=== PATIENT | male | born 1970 | race Hispanic/Latino ===

== ENCOUNTER 2017-11-30 14:18 | Emergency (ER) | payer OTHER ==
--- NOTE | 2017-11-30 14:59 | RAD ---
HISTORY: cough COMPARISON: No prior. TECHNIQUE: Chest PA and lateral FINDINGS: LUNGS: No active pulmonary disease. PLEURA: No significant pleural effusion identified. No pneumothorax apparent. CARDIOVASCULAR: Normal. Bronchovascular markings top-normal OSSEOUS STRUCTURES: No significant abnormalities. VISUALIZED UPPER ABDOMEN: Normal. OTHER FINDINGS: None. IMPRESSION: No infiltrate appreciated
[2017-11-30] MEDS ORDERED: Sodium Chloride 0.9% 1,000 ML IV SCH (15:15)
[2017-11-30 15:20] LABS: BASO % 0.4 % (0.0-2.0); EOS # 0.2 K/uL (0.0-0.7); EOS % 3.9 % (0.0-4.0); HEMOGLOBIN 14.6 g/dL (12.0-18.0); LYMPH # 0.4 K/uL (1.0-4.3); MEAN CELL VOLUME 95.1 fl (80.0-94.0); MEAN CORPUSCULAR HGB CONC 33.6 g/dL (33.0-37.0); MEAN PLATELET VOLUME 7.2 fl (7.2-11.7); MONO # 0.8 K/uL (0.0-0.8); MONO % 13.2 % (0.0-10.0); NEUT # 4.9 K/uL (1.8-7.0); NEUT % 76.5 % (50.0-75.0); NRBC % 0.1 % (0.0-0.0); PLATELET COUNT 158 K/uL (130-400); RBC 4.57 Mil/uL (4.40-5.90); RED CELL DISTRIBUTION WIDTH 13.7 % (11.5-14.5); WHITE BLOOD COUNT 6.4 K/uL (4.8-10.8)
[2017-11-30 15:27] LABS: ALB/GLOB RATIO 1.5 (1.0-2.1); ALBUMIN 4.5 g/dL (3.5-5.0); ALT/SGPT 75 U/L (21-72); AST/SGOT 75 U/L (17-59); BLOOD UREA NITROGEN 10 mg/dl (9-20); CALCIUM 9.2 mg/dL (8.4-10.2); GFR AFRICAN-AMERICAN > 60; GFR NON-AFRICAN AMERICAN > 60
--- NOTE | 2017-11-30 15:46 | ED PDOC ---
HPI: General Adult Chief Complaint (Nursing): Flu-like Symptoms History Per: Patient History/Exam Limitations: no limitations Onset/Duration Of Symptoms: Days (1) Have you had recent travel within the past 21 days to any of the following countries: [place], [place], [place] or [place]?: No Additional Complaint(s): 47 yo M w/ PMH of HTN and gout, reports 1 day of fever with malaise, chills, cough. Otherwise: (-) rash, (-) sore throat, (-) URI symptoms, (-) SOB, (-) chest pain, (-) N/V/D, (-) abdominal pain, (-) flank pain, (-) urinary symptoms , (-) recent travel, (-) sick contacts. Reports receiving the flu shot this season. Past Medical History Vital Signs: Last Vital Signs Temp 100.1 F H 11/30/17 14:56 Pulse 114 H 11/30/17 14:23 Resp 18 11/30/17 14:23 BP 135/88 11/30/17 14:23 Pulse Ox 94 L 11/30/17 15:51 - Medical History PMH: GERD, HTN (not on meds) - Family History Family History: States: Unknown Family Hx - Home Medications Home Medications: Ambulatory Orders Medication Instructions Recorded Naproxen 500 mg PO Q12 #20 tab 12/06/14 Meclizine HCl [Antivert/25] 1 tab PO TID PRN #25 tab 12/20/15 Acetaminophen/Oxycodone Hydr 1 tab PO Q6H PRN #10 tab 01/30/17 [Percocet 10/325 mg Tab] predniSONE [Prednisone] 20 mg PO BID #10 tab 01/30/17 Guaifenesin 400 mg PO QID PRN #20 tablet 11/30/17 Ibuprofen [Motrin Tab] 800 mg PO Q6H PRN #20 tab 11/30/17 - Allergies Allergies/Adverse Reactions: Allergies Allergy/AdvReac Type Severity Reaction Status Date / Time No Known Allergies Allergy Verified 11/30/17 14:28 Review of Systems Constitutional: Positive for: Fever, Chills, Malaise ENT: Negative for: Nose Discharge, Nose Congestion, Throat Pain Cardiovascular: Negative for: Chest Pain, Palpitations, Edema Respiratory: Positive for: Cough. Negative for: Shortness of Breath, Wheezing Gastrointestinal: Negative for: Nausea, Vomiting, Abdominal Pain Genitourinary Male: Negative for: Dysuria, Frequency, Hematuria Musculoskeletal: Negative for: Neck Pain, Back Pain Skin: Negative for: Rash, Lesions, Jaundice Neurological: Negative for: Weakness, Numbness, Incoordination Physical Exam - Physical Exam Comments: GENERAL APPEARANCE: Patient is awake, alert, oriented x 3, in no acute distress. SKIN: Warm, dry; (-) cyanosis, (-) rash. (-) Decubitus Ulcer EYES: (-) conjunctival pallor, (-) scleral icterus, (-) conjunctival hemorrhage. ENMT: Mucous membranes dry. TMs: (-) erythema. Airway patent: (-) stridor. Pharynx: (-) erythema, (-) exudate. NECK: (-) tenderness, (-) stiffness, (-) meningismus, (+) non-tender anterior cervical lymphadenopathy. CHEST AND RESPIRATORY: (-) accessory muscle use. Lungs: (-) rales, (-) rhonchi, (-) wheezes, (-) rub; breath sounds equal bilaterally. HEART AND CARDIOVASCULAR: (-) irregularity; (-) murmur, (-) gallop, (-) rub. ABDOMEN AND GI: Soft; (-) tenderness, (-) guarding; (-) organomegaly; (-) mass ; (-) CVA tenderness. EXTREMITIES: (-) deformity; (-) cellulitis, (-) lymphangitis; (-) subungual hemorrhage; (-) edema. NEURO AND PSYCH: Mental status as above; (-) focal findings. - Laboratory Results Result Diagrams: 11/30/17 15:10 11/30/17 15:10 - ECG O2 Sat by Pulse Oximetry: 94 Medical Decision Making Medical Decision Makin yo M c/o 1 day h/o fever, bodyaches, generalized weakness, productive cough x 1 day. Plan : - Labs - CXR - Rapid flu - IVF bolus - Motrin PO CXR : NAD, as read by GONZALO Rapid flu : (-) Labs reviewed and are wnl. On re-evaluation, patient reports feeling much improved. On exam, patient remains AAOx3 in no acute distress. Neck is supple with no signs of meningismus. Patient tolerating po fluids. Dx of viral illness d/w the patient. Based on history, exam and diagnostic results plan will be for outpatient follow up. Patient feels comfortable going home. Instructed to follow up with primary care physician in 1-2 days without fail. Advised to take medication as prescribed. Return to the emergency room at any time for any new or worsening symptoms. Patient states he fully agrees with and understands discharge instructions. States that he agrees with the plan and disposition. Verbalized and repeated discharge instructions and plan. I have given the patient opportunity to ask any additional questions. Disposition - Clinical Impression Clinical Impression: Influenza-like symptoms - Patient ED Disposition Is Patient to be Admitted: No Counseled Patient/Family Regarding: Studies Performed, Diagnosis, Need For Followup, Rx Given, Smoking Cessation - Disposition Disposition: Routine/Home Disposition Time: 15:44 Condition: STABLE Additional Instructions: Thank you for letting us take care of you today. You were treated for viral illness. The emergency medical care you received today was directed at your acute symptoms. If you were prescribed any medication, please fill it and take as directed. It may take several days for your symptoms to resolve. Return to the Emergency Department if your symptoms worsen, do not improve, or if you have any other problems. Please contact your doctor in 2 days for re-evaluation and follow up. Bring any paperwork you were given at discharge with you along with any medications you are taking to your follow up visit. Our treatment cannot replace ongoing medical care by a primary care provider (PCP) outside of the emergency department. Thank you for allowing the [facility] team to be part of your care today. Prescriptions: Guaifenesin 400 mg PO QID PRN #20 tablet PRN Reason: Cough Ibuprofen [Motrin Tab] 800 mg PO Q6H PRN #20 tab PRN Reason: Fever >100.4 F Instructions: Viral Syndrome (ED) Forms: [employer] (Macanese), [facility] ED School/Work Excuse Print Language: ECUADOREAN - PA / ONLINE MARKETING SPECIALIST / Resident Statement MD/DO has reviewed & agrees with the documentation as recorded.
[2017-11-30 16:32] VITALS: TEMP 100.9
[2017-11-30 16:33] VITALS: BP 122/74; PULSE 94; RESP 16; O2SAT 97
[2017-11-30 16:50] LABS: BANDS 3 % (0-2); EOSINOPHIL 4 % (0-7); LYMPHOCYTE 8 % (20-50); MONOCYTE 10 % (0-10); NEUTROPHIL 75 % (42-75); PLATELET ESTIMATE NORMAL (NORMAL); TOTAL CELLS COUNTED 100
== END 2017-11-30 16:51 | disposition home or self-care (01) ==
LOC: H.ER 14:18
DX: B34.9 Viral infection, unspecified (principal); I10 Essential (primary) hypertension; M10.9 Gout, unspecified
CPT/HCPCS: 71046; 80053; 85025; 87804; 96360; 99283; J7040

== ENCOUNTER 2019-02-22 23:19 | Emergency (ER) | payer OTHER ==
[2019-02-22 23:28] VITALS: RESP 18; TEMP 97.5; O2SAT 99
--- NOTE | 2019-02-23 00:08 | ED PDOC ---
HPI: Psych/Substance Abuse Time Seen by Provider: 02/22/19 23:45 Chief Complaint (Nursing): Alcohol Ingestion History Per: Patient History/Exam Limitations: no limitations Modifying Factor(s): Alcohol Additional Complaint(s): 48 yo M brought by police for intoxication. someone saw pt walking and was concerned so contacted police. Pt admits to drinking a few beers tonight. Denies daily alcohol intake. Has no complaints at this time. Denies Suicidal or homicidal ideations, visual or auditory hallucination. Past Medical History Reviewed: Historical Data, Nursing Documentation, Vital Signs Vital Signs: Last Vital Signs Temp 97.5 F L 02/22/19 23:26 Pulse 74 02/22/19 23:26 Resp 18 02/22/19 23:26 BP 147/100 H 02/22/19 23:26 Pulse Ox 99 02/22/19 23:26 - Medical History PMH: GERD, HTN (not on meds) - Family History Family History: States: Unknown Family Hx - Social History Current smoker - smoking cessation education provided: No Alcohol: Occasional Drugs: Denies - Home Medications Home Medications: Ambulatory Orders Medication Instructions Recorded Naproxen 500 mg PO Q12 #20 tab 12/06/14 Meclizine HCl [Antivert/25] 1 tab PO TID PRN #25 tab 12/20/15 Acetaminophen/Oxycodone Hydr 1 tab PO Q6H PRN #10 tab 01/30/17 [Percocet 10/325 mg Tab] predniSONE [Prednisone] 20 mg PO BID #10 tab 01/30/17 Guaifenesin 400 mg PO QID PRN #20 tablet 11/30/17 Ibuprofen [Motrin Tab] 800 mg PO Q6H PRN #20 tab 11/30/17 - Allergies Allergies/Adverse Reactions: Allergies Allergy/AdvReac Type Severity Reaction Status Date / Time No Known Allergies Allergy Verified 11/30/17 14:28 Review of Systems Constitutional: Negative for: Fever Eyes: Negative for: Vision Change Cardiovascular: Negative for: Palpitations Gastrointestinal: Negative for: Nausea, Abdominal Pain Neurological: Negative for: Incoordination, Change in Speech, Confusion, Altered Mental Status, Headache Physical Exam - Reviewed Nursing Documentation Reviewed: Yes - Physical Exam Comments: GENERALIZED APPEARANCE: Patient is AAO x 3, in no acute distress. smells of alcohol SKIN: Warm, dry; (-) cyanosis. HEAD: (-) scalp swelling, (-) scalp tenderness. EYES: (-) conjunctival pallor, (-) scleral icterus, (-) nystagmus. ENMT: Mucous membranes moist. Airway patent: (-) stridor. NECK: (-) tenderness, (-) stiffness, (-) lymphadenopathy. CHEST AND RESPIRATORY: (-) rales, (-) rhonchi, (-) wheezes; breath sounds equalbilaterally. HEART AND CARDIOVASCULAR: (-) irregularity; (-) murmur, (-) gallop. ABDOMEN AND GI: Soft; (-) tenderness. EXTREMITIES: (-) deformity. NEURO AND PSYCH: Mental status as above, oriented _. (-) apparent hallucinations or delusions. Affect: happy. human resources project manager: Pupils reactive; (-) facial asymmetry; tongue anduvula midline, normal steady gait, Strength: Symmetric. - ECG O2 Sat by Pulse Oximetry: 99 Medical Decision Making Medical Decision Makin 48 yo M brought in for alcohol intoxication in public, A&Ox3, normal steady gait, is not driving home, pt is stable for dc Discussed diagnosis, treatment, return precautions and f/u with pt who is understanding, in agreement and stable for dc Disposition - Clinical Impression Clinical Impression: Alcohol abuse with intoxication - Patient ED Disposition Is Patient to be Admitted: No Counseled Patient/Family Regarding: Studies Performed, Diagnosis, Need For Followup - Disposition Referrals: your, doctor [Other] Disposition: Routine/Home Disposition Time: 00:08 Condition: STABLE Additional Instructions: Return to ED for new or worsening symptoms, fever >100.4, changes in behavior, changes in vision, unable to walk. Follow up with your primary doctor. Instructions: Alcohol Use - When Is Drinking a Problem? Forms: [employer] (French) Print Language: MALAYSIAN - POA Present On Arrival: None
[2019-02-23 00:11] VITALS: BP 129/98; PULSE 99
== END 2019-02-23 00:11 | disposition home or self-care (01) ==
LOC: H.ER 23:19
DX: F10.129 Alcohol abuse with intoxication, unspecified (principal); I10 Essential (primary) hypertension; K21.9 Gastro-esophageal reflux disease without esophagitis